=== PATIENT | male | born 2000 | race Caucasian/White ===

== ENCOUNTER 2025-07-27 05:31 | Emergency (ER) | payer MEDICAID, OTHER | END 2025-07-27 07:04 | disposition home or self-care (01) | LOC: MW.ED 05:31 | DX: K04.7 Periapical abscess without sinus (principal) | CPT/HCPCS: 64400; 99283; A9270; J0665 ==

== ENCOUNTER 2025-08-25 01:31 | Emergency (ER) | payer MEDICAID ==
[2025-08-25] MEDS ORDERED: Sodium Chloride 0.9% 10 ML Syringe FLUSH PRN (01:34)
[2025-08-25] MEDS ORDERED: Sodium Chloride 0.9% 2.5 ML Syringe FLUSH PRN (01:34)
[2025-08-25] MEDS: Ketorolac 30 MG/ML SDV IVPUSH ONE (01:49)
[2025-08-25] MEDS: Pantoprazole 40 MG in Sodium Chloride 0.9% 10 ML IVPUSH ONE (01:49)
[2025-08-25 01:53] LABS: BASOPHILS ABSOLUTE AUTO 0.04 K/uL (0.00-0.20); BASOPHILS PERCENT AUTO 0.5 % (0.0-1.0); EOSINOPHILS ABSOLUTE AUTO 0.06 K/uL (0.00-0.45); EOSINOPHILS PERCENT AUTO 0.7 % (0.0-6.0); IMMATURE GRAN ABSOLUTE AUTO 0.02 K/uL (0.00-0.05); IMMATURE GRAN PERCENT AUTO 0.2 % (0.0-0.4); LYMPHOCYTES ABSOLUTE AUTO 2.87 K/uL (1.00-4.80); LYMPHOCYTES PERCENT AUTO 33.7 % (24.0-44.0); MEAN PLATELET VOLUME 11.1 fL (9.4-12.4); MONOCYTES ABSOLUTE AUTO 0.62 K/uL (0.00-0.80); MONOCYTES PERCENT AUTO 7.3 % (0.0-8.0); NEUTROPHILS ABSOLUTE AUTO 4.90 K/uL (1.80-7.70); NEUTROPHILS PERCENT AUTO 57.6 % (41.0-71.0); NRBC ABSOLUTE 0.00 K/uL (0.00-0.02); NRBC PERCENT 0.0 /100WBC (0.0-0.2); PLATELET COUNT,PLT 209 K/uL (150-400); RED BLOOD CELL COUNT 5.09 M/uL (4.52-5.90); WHITE BLOOD CELL COUNT,WBC 8.51 K/uL (3.9-11.3)
[2025-08-25 02:18] LABS: A/G RATIO 1.1 (0.9-1.6); ALANINE AMINOTRANSFERASE,ALT 49.0 IU/L (14-63); ASPARTATE AMNIOTRANSFERASE,AST 32.0 IU/L (15-37); BILIRUBIN TOTAL 0.8 mg/dL (0.2-1.0); BLOOD UREA NITROGEN,BUN 9.0 mg/dL (7.0-18.0); CARBON DIOXIDE,CO2 24.5 mmol/L (21.0-32.0); CHLORIDE,CL 105.0 mmol/L (98-107); CREATININE 0.9 mg/dL (0.8-1.3); EST CRCL DRUG DOSING (CG) 121.39 mL/min; GLUCOSE RANDOM 102.0 mg/dL (74-106); POTASSIUM,K 4.0 mmol/L (3.5-5.1); PROTEIN TOTAL,TP 7.7 g/dL (6.4-8.2); SODIUM,NA 141.0 mmol/L (136-148)
[2025-08-25 02:22] LABS: PRO B-TYPE NATRIUR PEPT,BNPPRO 14 pg/mL (0-125)
[2025-08-25 02:26] LABS: ESTIMATED GFR 122.0 mL/min (>60)
== END 2025-08-25 03:21 | disposition home or self-care (01) ==
LOC: MW.ED 01:31
DX: R11.2 Nausea with vomiting, unspecified (principal); R42 Dizziness and giddiness; B34.9 Viral infection, unspecified; F41.0 Panic disorder [episodic paroxysmal anxiety]; F17.200 Nicotine dependence, unspecified, uncomplicated
CPT/HCPCS: 36415; 71045; 80053; 83690; 83735; 83880; 84484; 85025; 87428; 93005; 96374; 96375; 99285; J1885; J2470; 93010; 99283